=== PATIENT | male | born 1945 | race Caucasian/White ===

== ENCOUNTER 2017-09-17 15:02 | Inpatient (IN) | payer MEDICARE, OTHER ==
[2017-09-17 16:02] LABS: ADD MAN DIFF? NO
[2017-09-17 16:04] LABS: BASOPHILS % 0.4 % (0.0-2.0); EOSINOPHILS # 0.2 10^3/ul (0.0-0.5); EOSINOPHILS % 1.7 % (0.0-7.0); HEMATOCRIT 35.7 % (42.0-52.0); HEMOGLOBIN 12.1 g/dl (14.0-18.0); LYMPHOCYTES # 1.4 10^3/ul (0.8-2.9); LYMPHOCYTES % 14.2 % (15.0-51.0); MEAN CORPUSCULAR HGB CONC 33.9 g/dl (32.0-37.0); MEAN CORPUSCULAR VOLUME 97.3 fl (82.0-101.0); MEAN PLATELET VOLUME 10.6 fl (7.4-10.4); MONOCYTE # 0.9 10^3/ul (0.3-0.9); MONOCYTES % 9.1 % (0.0-11.0); NEUTROPHIL # 7.3 10^3/ul (1.6-7.5); NEUTROPHILS % 74.3 % (39.0-77.0); PLATELET COUNT 245 10^3/UL (140-415); RED BLOOD COUNT 3.67 10^6/ul (4.70-6.10); RED CELL DISTRIBUTION WIDTH 12.2 % (11.5-14.5)
[2017-09-17 16:04] LABS: WHITE BLOOD COUNT 9.8 10^3/ul (4.8-10.8)
[2017-09-17 16:09] LABS: INR 1.12; PROTIME 14.6 Sec (11.9-14.9); PT RATIO 1.1
[2017-09-17 16:10] LABS: PARTIAL THROMBOPLASTIN TIME 28.5 Sec (25.0-35.0)
[2017-09-17 16:13] LABS: ALANINE AMINOTRANSFERASE 24 IU/L (13-69); ALBUMIN 3.8 g/dl (3.3-4.9); ALBUMIN/GLOBULIN RATIO 1.08; ALKALINE PHOSPHATASE 52 IU/L (42-121); ANION GAP 17 (8-16); ASPARTATE AMINO TRANSFERASE 29 IU/L (15-46); BILIRUBIN,INDIRECT 0.1 mg/dl (0-1.1); BILIRUBIN,TOTAL 0.1 mg/dl (0.2-1.3); BLOOD UREA NITROGEN 16 mg/dl (7-20); CALCIUM 8.9 mg/dl (8.4-10.2); CARBON DIOXIDE 29 mmol/L (21-31); CHLORIDE 102 mmol/L (97-110); CREATININE 0.77 mg/dl (0.61-1.24); GLUCOSE 115 mg/dl (70-220); POTASSIUM 4.6 mmol/L (3.5-5.1); SODIUM 143 mmol/L (135-144); TOTAL PROTEIN 7.3 g/dl (6.1-8.1)
[2017-09-17 16:20] LABS: ADD UMIC YES; UR ASCORBIC ACID NEGATIVE (NEGATIVE); UR BILIRUBIN (Dip) NEGATIVE (NEGATIVE); UR BLOOD (Dip) 1+ mg/dL (NEGATIVE); UR CLARITY SLIGHTLY CLOUDY (CLEAR); UR COLOR YELLOW (YELLOW); UR GLUCOSE (Dip) NEGATIVE (NEGATIVE); UR KETONES (Dip) NEGATIVE (NEGATIVE); UR LEUKOCYTE ESTERASE (Dip) NEGATIVE Leu/ul (NEGATIVE); UR MUCUS MODERATE /HPF (NONE SEEN); UR NITRITE (Dip) NEGATIVE (NEGATIVE); UR RBC 2 /HPF (0-5); UR SPECIFIC GRAVITY (Dip) 1.014 (1.003-1.030); UR TOTAL PROTEIN (Dip) NEGATIVE (NEGATIVE); UR UROBILINOGEN (Dip) NEGATIVE (NEGATIVE); UR WBC 1 /HPF (0-5)
[2017-09-17 16:25] LABS: B-TYPE NATRIURETIC PEPTIDE 203 PG/ML (0-125)
[2017-09-17 16:34] LABS: TROPONIN-I < 0.012 ng/ml (0.00-0.12)
[2017-09-17 16:55] LABS: PHENYTOIN (DILANTIN) 5.2 ug/ml (10.0-20.0)
[2017-09-17] MEDS ORDERED: ACETAMINOPHEN 325 MG TAB PO (19:00)
[2017-09-17] MEDS ORDERED: ONDANSETRON 4 MG INJ IV (19:00)
[2017-09-17] MEDS: ENOXAPARIN 100 MG/ML SYG SC (19:05)
[2017-09-17] MEDS: PHENYTOIN 100 MG CAP PO (19:05)
[2017-09-17] MEDS: morphine (ER) 30 MG TAB PO (23:25)
[2017-09-17] MEDS: ATORVASTATIN 10 MG TAB PO (23:51)
[2017-09-17] MEDS: DIAZEPAM 5 MG TAB PO (23:52)
[2017-09-17] MEDS: TAMSULOSIN (SR) 0.4 MG CAP PO (23:52)
[2017-09-18 05:36] LABS: ADD MAN DIFF? NO
[2017-09-18 05:40] LABS: BASOPHIL # 0.1 10^3/ul (0.0-0.1); BASOPHILS % 0.7 % (0.0-2.0); EOSINOPHILS # 0.4 10^3/ul (0.0-0.5); EOSINOPHILS % 4.4 % (0.0-7.0); HEMATOCRIT 31.3 % (42.0-52.0); HEMOGLOBIN 10.6 g/dl (14.0-18.0); LYMPHOCYTES # 2.4 10^3/ul (0.8-2.9); LYMPHOCYTES % 30.1 % (15.0-51.0); MEAN CORPUSCULAR HEMOGLOBIN 33.3 pg (29.0-33.0); MEAN CORPUSCULAR HGB CONC 33.9 g/dl (32.0-37.0); MEAN CORPUSCULAR VOLUME 98.4 fl (82.0-101.0); MONOCYTE # 0.8 10^3/ul (0.3-0.9); MONOCYTES % 10.1 % (0.0-11.0); NEUTROPHIL # 4.4 10^3/ul (1.6-7.5); NEUTROPHILS % 54.3 % (39.0-77.0); PLATELET COUNT 251 10^3/UL (140-415); RED BLOOD COUNT 3.18 10^6/ul (4.70-6.10); RED CELL DISTRIBUTION WIDTH 12.2 % (11.5-14.5)
[2017-09-18 06:45] LABS: CK INDEX 1.1; CREATINE KINASE 78 IU/L (23-200)
[2017-09-18 06:55] LABS: CK-MB 0.85 ng/ml (0.0-2.4); TROPONIN-I < 0.012 ng/ml (0.00-0.12)
[2017-09-18] MEDS ORDERED: ATORVASTATIN 10 MG TAB PO (09:00)
[2017-09-18] MEDS: PHENOBARBITAL 32.4 MG TAB PO (09:29)
[2017-09-18] MEDS: morphine (ER) 30 MG TAB PO ×2 (09:29→20:16)
[2017-09-18] MEDS: PHENYTOIN 100 MG CAP PO (09:29)
[2017-09-18] MEDS: ENOXAPARIN 100 MG/ML SYG SC ×2 (09:30→20:18)
[2017-09-18] MEDS: DIAZEPAM 5 MG TAB PO (20:16)
[2017-09-18] MEDS: TAMSULOSIN (SR) 0.4 MG CAP PO (20:17)
[2017-09-18] MEDS: ATORVASTATIN 10 MG TAB PO (20:17)
[2017-09-18] MEDS ORDERED: DIAZEPAM 5 MG TAB PO (21:00)
[2017-09-18] MEDS ORDERED: TAMSULOSIN (SR) 0.4 MG CAP PO (21:00)
[2017-09-18] MEDS: ACETAMINOPHEN 325 MG TAB PO (21:29)
[2017-09-18] MEDS: HYDROCODONE/APAP (5/325) TAB PO (22:54)
[2017-09-19 05:08] LABS: ADD MAN DIFF? NO
[2017-09-19 05:11] LABS: BASOPHILS % 0.4 % (0.0-2.0); EOSINOPHILS # 0.3 10^3/ul (0.0-0.5); EOSINOPHILS % 3.4 % (0.0-7.0); HEMATOCRIT 33.6 % (42.0-52.0); HEMOGLOBIN 10.9 g/dl (14.0-18.0); LYMPHOCYTES # 3.3 10^3/ul (0.8-2.9); LYMPHOCYTES % 35.4 % (15.0-51.0); MEAN CORPUSCULAR HEMOGLOBIN 32.5 pg (29.0-33.0); MEAN CORPUSCULAR HGB CONC 32.4 g/dl (32.0-37.0); MEAN CORPUSCULAR VOLUME 100.3 fl (82.0-101.0); MEAN PLATELET VOLUME 9.4 fl (7.4-10.4); MONOCYTE # 0.8 10^3/ul (0.3-0.9); MONOCYTES % 8.7 % (0.0-11.0); NEUTROPHIL # 4.8 10^3/ul (1.6-7.5); NEUTROPHILS % 51.6 % (39.0-77.0); PLATELET COUNT 305 10^3/UL (140-415); RED BLOOD COUNT 3.35 10^6/ul (4.70-6.10); RED CELL DISTRIBUTION WIDTH 12.2 % (11.5-14.5)
[2017-09-19 05:11] LABS: WHITE BLOOD COUNT 9.2 10^3/ul (4.8-10.8)
[2017-09-19 05:41] LABS: ANION GAP 12 (8-16); BLOOD UREA NITROGEN 18 mg/dl (7-20); CALCIUM 8.5 mg/dl (8.4-10.2); CARBON DIOXIDE 29 mmol/L (21-31); CHLORIDE 103 mmol/L (97-110); CREATININE 0.86 mg/dl (0.61-1.24); GLUCOSE 100 mg/dl (70-220); POTASSIUM 4.4 mmol/L (3.5-5.1); SODIUM 140 mmol/L (135-144)
[2017-09-19 06:11] LABS: PHENOBARBITAL 8.3 mg/L (15.0-40.0)
[2017-09-19] MEDS: ENOXAPARIN 100 MG/ML SYG SC ×2 (09:13→20:28)
[2017-09-19] MEDS: morphine (ER) 30 MG TAB PO ×2 (09:14→20:26)
[2017-09-19] MEDS: PHENYTOIN 100 MG CAP PO (09:14)
[2017-09-19] MEDS: PHENOBARBITAL 32.4 MG TAB PO (09:20)
[2017-09-19] MEDS: TAMSULOSIN (SR) 0.4 MG CAP PO (20:25)
[2017-09-19] MEDS: ATORVASTATIN 10 MG TAB PO (20:25)
[2017-09-19] MEDS: DIAZEPAM 5 MG TAB PO (20:26)
[2017-09-20] MEDS: ACETAMINOPHEN 325 MG TAB PO (01:16)
[2017-09-20 04:58] LABS: ADD MAN DIFF? NO
[2017-09-20 05:01] LABS: BASOPHILS % 0.4 % (0.0-2.0); EOSINOPHILS # 0.4 10^3/ul (0.0-0.5); EOSINOPHILS % 4.2 % (0.0-7.0); HEMATOCRIT 34.6 % (42.0-52.0); HEMOGLOBIN 11.3 g/dl (14.0-18.0); LYMPHOCYTES # 2.8 10^3/ul (0.8-2.9); LYMPHOCYTES % 29.4 % (15.0-51.0); MEAN CORPUSCULAR HEMOGLOBIN 32.3 pg (29.0-33.0); MEAN CORPUSCULAR HGB CONC 32.7 g/dl (32.0-37.0); MEAN CORPUSCULAR VOLUME 98.9 fl (82.0-101.0); MONOCYTE # 0.8 10^3/ul (0.3-0.9); MONOCYTES % 8.9 % (0.0-11.0); NEUTROPHIL # 5.3 10^3/ul (1.6-7.5); NEUTROPHILS % 56.6 % (39.0-77.0); PLATELET COUNT 343 10^3/UL (140-415); RED CELL DISTRIBUTION WIDTH 11.9 % (11.5-14.5)
[2017-09-20 05:01] LABS: WHITE BLOOD COUNT 9.4 10^3/ul (4.8-10.8)
[2017-09-20 05:23] LABS: ANION GAP 12 (8-16); BLOOD UREA NITROGEN 18 mg/dl (7-20); CALCIUM 8.7 mg/dl (8.4-10.2); CARBON DIOXIDE 30 mmol/L (21-31); CHLORIDE 100 mmol/L (97-110); CREATININE 0.84 mg/dl (0.61-1.24); GLUCOSE 103 mg/dl (70-220); POTASSIUM 4.5 mmol/L (3.5-5.1); SODIUM 137 mmol/L (135-144)
[2017-09-20] MEDS: PHENOBARBITAL 32.4 MG TAB PO (09:03)
[2017-09-20] MEDS: PHENYTOIN 100 MG CAP PO (09:03)
[2017-09-20] MEDS: morphine (ER) 30 MG TAB PO ×2 (09:04→21:03)
[2017-09-20] MEDS: ENOXAPARIN 100 MG/ML SYG SC ×2 (09:04→21:02)
[2017-09-20] MEDS: ATORVASTATIN 10 MG TAB PO (21:03)
[2017-09-20] MEDS: TAMSULOSIN (SR) 0.4 MG CAP PO (21:03)
[2017-09-20] MEDS: DIAZEPAM 5 MG TAB PO (21:03)
[2017-09-21] MEDS: ACETAMINOPHEN 325 MG TAB PO (02:20)
[2017-09-21 05:48] LABS: ADD MAN DIFF? NO
[2017-09-21 05:52] LABS: BASOPHIL # 0.1 10^3/ul (0.0-0.1); BASOPHILS % 0.5 % (0.0-2.0); EOSINOPHILS # 0.3 10^3/ul (0.0-0.5); EOSINOPHILS % 3.4 % (0.0-7.0); HEMATOCRIT 35.9 % (42.0-52.0); HEMOGLOBIN 11.8 g/dl (14.0-18.0); LYMPHOCYTES # 2.1 10^3/ul (0.8-2.9); MEAN CORPUSCULAR HEMOGLOBIN 32.3 pg (29.0-33.0); MEAN CORPUSCULAR HGB CONC 32.9 g/dl (32.0-37.0); MEAN CORPUSCULAR VOLUME 98.4 fl (82.0-101.0); MEAN PLATELET VOLUME 9.3 fl (7.4-10.4); MONOCYTE # 0.7 10^3/ul (0.3-0.9); MONOCYTES % 7.4 % (0.0-11.0); NEUTROPHIL # 6.2 10^3/ul (1.6-7.5); NEUTROPHILS % 66.3 % (39.0-77.0); PLATELET COUNT 409 10^3/UL (140-415); RED BLOOD COUNT 3.65 10^6/ul (4.70-6.10); RED CELL DISTRIBUTION WIDTH 11.8 % (11.5-14.5)
[2017-09-21 05:52] LABS: WHITE BLOOD COUNT 9.4 10^3/ul (4.8-10.8)
[2017-09-21 06:15] LABS: ANION GAP 9 (8-16); BLOOD UREA NITROGEN 17 mg/dl (7-20); CALCIUM 8.7 mg/dl (8.4-10.2); CARBON DIOXIDE 33 mmol/L (21-31); CHLORIDE 100 mmol/L (97-110); GLUCOSE 107 mg/dl (70-220); POTASSIUM 4.7 mmol/L (3.5-5.1); SODIUM 137 mmol/L (135-144)
[2017-09-21] MEDS: PHENYTOIN 100 MG CAP PO (08:46)
[2017-09-21] MEDS: morphine (ER) 30 MG TAB PO ×2 (08:47→21:21)
[2017-09-21] MEDS: PHENOBARBITAL 32.4 MG TAB PO (08:47)
[2017-09-21] MEDS: ENOXAPARIN 100 MG/ML SYG SC ×2 (08:56→21:22)
[2017-09-21] MEDS: DIAZEPAM 5 MG TAB PO (21:21)
[2017-09-21] MEDS: TAMSULOSIN (SR) 0.4 MG CAP PO (21:21)
[2017-09-21] MEDS: ATORVASTATIN 10 MG TAB PO (21:21)
[2017-09-22 05:34] LABS: ADD MAN DIFF? NO
[2017-09-22 05:41] LABS: WHITE BLOOD COUNT 10.4 10^3/ul (4.8-10.8)
[2017-09-22 05:41] LABS: BASOPHIL # 0.1 10^3/ul (0.0-0.1); BASOPHILS % 0.5 % (0.0-2.0); EOSINOPHILS # 0.3 10^3/ul (0.0-0.5); EOSINOPHILS % 3.2 % (0.0-7.0); HEMATOCRIT 35.5 % (42.0-52.0); HEMOGLOBIN 11.7 g/dl (14.0-18.0); LYMPHOCYTES # 2.6 10^3/ul (0.8-2.9); LYMPHOCYTES % 24.6 % (15.0-51.0); MEAN CORPUSCULAR HEMOGLOBIN 32.4 pg (29.0-33.0); MEAN CORPUSCULAR VOLUME 98.3 fl (82.0-101.0); MEAN PLATELET VOLUME 9.3 fl (7.4-10.4); MONOCYTE # 0.9 10^3/ul (0.3-0.9); MONOCYTES % 8.8 % (0.0-11.0); NEUTROPHIL # 6.5 10^3/ul (1.6-7.5); NEUTROPHILS % 62.4 % (39.0-77.0); PLATELET COUNT 404 10^3/UL (140-415); RED BLOOD COUNT 3.61 10^6/ul (4.70-6.10)
[2017-09-22 06:14] LABS: ANION GAP 13 (8-16); BLOOD UREA NITROGEN 19 mg/dl (7-20); CALCIUM 8.6 mg/dl (8.4-10.2); CARBON DIOXIDE 28 mmol/L (21-31); CHLORIDE 102 mmol/L (97-110); CREATININE 0.73 mg/dl (0.61-1.24); GLUCOSE 97 mg/dl (70-220); POTASSIUM 4.7 mmol/L (3.5-5.1); SODIUM 138 mmol/L (135-144)
[2017-09-22] MEDS: PHENYTOIN 100 MG CAP PO (08:58)
[2017-09-22] MEDS: PHENOBARBITAL 32.4 MG TAB PO (08:58)
[2017-09-22] MEDS: morphine (ER) 30 MG TAB PO ×2 (08:59→20:05)
[2017-09-22] MEDS: ENOXAPARIN 100 MG/ML SYG SC ×2 (09:14→20:14)
[2017-09-22] MEDS: TAMSULOSIN (SR) 0.4 MG CAP PO (20:05)
[2017-09-22] MEDS: ATORVASTATIN 10 MG TAB PO (20:05)
[2017-09-22] MEDS: DIAZEPAM 5 MG TAB PO (20:05)
[2017-09-23 05:32] LABS: ADD MAN DIFF? NO
[2017-09-23 05:35] LABS: BASOPHILS % 0.5 % (0.0-2.0); EOSINOPHILS # 0.4 10^3/ul (0.0-0.5); EOSINOPHILS % 4.4 % (0.0-7.0); HEMATOCRIT 33.8 % (42.0-52.0); HEMOGLOBIN 11.1 g/dl (14.0-18.0); LYMPHOCYTES # 2.4 10^3/ul (0.8-2.9); LYMPHOCYTES % 29.8 % (15.0-51.0); MEAN CORPUSCULAR HEMOGLOBIN 32.6 pg (29.0-33.0); MEAN CORPUSCULAR HGB CONC 32.8 g/dl (32.0-37.0); MEAN CORPUSCULAR VOLUME 99.4 fl (82.0-101.0); MEAN PLATELET VOLUME 9.2 fl (7.4-10.4); MONOCYTE # 0.8 10^3/ul (0.3-0.9); MONOCYTES % 9.5 % (0.0-11.0); NEUTROPHIL # 4.4 10^3/ul (1.6-7.5); NEUTROPHILS % 55.2 % (39.0-77.0); PLATELET COUNT 384 10^3/UL (140-415); RED CELL DISTRIBUTION WIDTH 12.1 % (11.5-14.5)
[2017-09-23 05:35] LABS: WHITE BLOOD COUNT 7.9 10^3/ul (4.8-10.8)
[2017-09-23 06:57] LABS: ANION GAP 11 (8-16); BLOOD UREA NITROGEN 19 mg/dl (7-20); CALCIUM 8.3 mg/dl (8.4-10.2); CARBON DIOXIDE 30 mmol/L (21-31); CHLORIDE 101 mmol/L (97-110); CREATININE 0.71 mg/dl (0.61-1.24); GLUCOSE 91 mg/dl (70-220); POTASSIUM 4.4 mmol/L (3.5-5.1); SODIUM 138 mmol/L (135-144)
[2017-09-23] MEDS: PHENYTOIN 100 MG CAP PO (09:05)
[2017-09-23] MEDS: PHENOBARBITAL 32.4 MG TAB PO (09:06)
[2017-09-23] MEDS: morphine (ER) 30 MG TAB PO ×2 (09:06→21:13)
[2017-09-23] MEDS: ENOXAPARIN 100 MG/ML SYG SC ×2 (09:09→21:14)
[2017-09-23] MEDS: SENNA/DOCUSATE NA (8.6MG/50MG) TAB PO (14:47)
[2017-09-23] MEDS: MAGNESIUM CITRATE 300 ML BTL PO (17:39)
[2017-09-23] MEDS: DIAZEPAM 5 MG TAB PO (21:12)
[2017-09-23] MEDS: ATORVASTATIN 10 MG TAB PO (21:12)
[2017-09-23] MEDS: TAMSULOSIN (SR) 0.4 MG CAP PO (21:12)
[2017-09-24] MEDS: PHENOBARBITAL 32.4 MG TAB PO (09:02)
[2017-09-24] MEDS: PHENYTOIN 100 MG CAP PO (09:03)
[2017-09-24] MEDS: morphine (ER) 30 MG TAB PO ×2 (09:03→21:01)
[2017-09-24] MEDS: ENOXAPARIN 100 MG/ML SYG SC ×2 (09:04→21:03)
[2017-09-24] MEDS: ATORVASTATIN 10 MG TAB PO (21:00)
[2017-09-24] MEDS: TAMSULOSIN (SR) 0.4 MG CAP PO (21:01)
[2017-09-24] MEDS: DIAZEPAM 5 MG TAB PO (21:01)
[2017-09-25] MEDS: PHENYTOIN 100 MG CAP PO (09:21)
[2017-09-25] MEDS: morphine (ER) 30 MG TAB PO ×2 (09:21→20:08)
[2017-09-25] MEDS: PHENOBARBITAL 32.4 MG TAB PO (09:21)
[2017-09-25] MEDS: ENOXAPARIN 100 MG/ML SYG SC ×2 (09:22→20:16)
[2017-09-25] MEDS: ATORVASTATIN 10 MG TAB PO (20:07)
[2017-09-25] MEDS: TAMSULOSIN (SR) 0.4 MG CAP PO (20:08)
[2017-09-25] MEDS: DIAZEPAM 5 MG TAB PO (20:08)
[2017-09-26 05:13] LABS: WHITE BLOOD COUNT 8.3 10^3/ul (4.8-10.8)
[2017-09-26 05:13] LABS: ADD MAN DIFF? NO; BASOPHIL # 0.1 10^3/ul (0.0-0.1); BASOPHILS % 0.6 % (0.0-2.0); EOSINOPHILS # 0.3 10^3/ul (0.0-0.5); EOSINOPHILS % 3.9 % (0.0-7.0); HEMATOCRIT 36.3 % (42.0-52.0); HEMOGLOBIN 11.8 g/dl (14.0-18.0); LYMPHOCYTES # 2.5 10^3/ul (0.8-2.9); LYMPHOCYTES % 30.5 % (15.0-51.0); MEAN CORPUSCULAR HEMOGLOBIN 32.2 pg (29.0-33.0); MEAN CORPUSCULAR HGB CONC 32.5 g/dl (32.0-37.0); MEAN CORPUSCULAR VOLUME 99.2 fl (82.0-101.0); MEAN PLATELET VOLUME 9.1 fl (7.4-10.4); MONOCYTE # 0.7 10^3/ul (0.3-0.9); MONOCYTES % 8.8 % (0.0-11.0); NEUTROPHIL # 4.6 10^3/ul (1.6-7.5); NEUTROPHILS % 55.7 % (39.0-77.0); PLATELET COUNT 384 10^3/UL (140-415); RED BLOOD COUNT 3.66 10^6/ul (4.70-6.10); RED CELL DISTRIBUTION WIDTH 12.1 % (11.5-14.5)
[2017-09-26 05:38] LABS: ANION GAP 9 (8-16); BLOOD UREA NITROGEN 16 mg/dl (7-20); CALCIUM 8.5 mg/dl (8.4-10.2); CARBON DIOXIDE 31 mmol/L (21-31); CHLORIDE 103 mmol/L (97-110); CREATININE 0.72 mg/dl (0.61-1.24); GLUCOSE 89 mg/dl (70-220); POTASSIUM 4.2 mmol/L (3.5-5.1); SODIUM 139 mmol/L (135-144)
[2017-09-26] MEDS: PHENOBARBITAL 32.4 MG TAB PO (08:35)
[2017-09-26] MEDS: PHENYTOIN 100 MG CAP PO (08:35)
[2017-09-26] MEDS: morphine (ER) 30 MG TAB PO ×2 (08:37→21:13)
[2017-09-26] MEDS: ENOXAPARIN 100 MG/ML SYG SC ×2 (08:40→21:14)
[2017-09-26] MEDS: ATORVASTATIN 10 MG TAB PO (21:13)
[2017-09-26] MEDS: DIAZEPAM 5 MG TAB PO (21:13)
[2017-09-26] MEDS: TAMSULOSIN (SR) 0.4 MG CAP PO (21:13)
[2017-09-27 05:20] LABS: ADD MAN DIFF? NO
[2017-09-27 05:26] LABS: WHITE BLOOD COUNT 8.8 10^3/ul (4.8-10.8)
[2017-09-27 05:26] LABS: BASOPHILS % 0.5 % (0.0-2.0); EOSINOPHILS # 0.4 10^3/ul (0.0-0.5); EOSINOPHILS % 4.1 % (0.0-7.0); HEMATOCRIT 38.1 % (42.0-52.0); HEMOGLOBIN 12.1 g/dl (14.0-18.0); LYMPHOCYTES # 2.6 10^3/ul (0.8-2.9); LYMPHOCYTES % 29.5 % (15.0-51.0); MEAN CORPUSCULAR HEMOGLOBIN 31.6 pg (29.0-33.0); MEAN CORPUSCULAR HGB CONC 31.8 g/dl (32.0-37.0); MEAN CORPUSCULAR VOLUME 99.5 fl (82.0-101.0); MEAN PLATELET VOLUME 9.3 fl (7.4-10.4); MONOCYTE # 0.8 10^3/ul (0.3-0.9); MONOCYTES % 8.8 % (0.0-11.0); NEUTROPHILS % 56.8 % (39.0-77.0); PLATELET COUNT 385 10^3/UL (140-415); RED BLOOD COUNT 3.83 10^6/ul (4.70-6.10); RED CELL DISTRIBUTION WIDTH 12.1 % (11.5-14.5)
[2017-09-27 05:45] LABS: ANION GAP 12 (8-16); BLOOD UREA NITROGEN 16 mg/dl (7-20); CALCIUM 8.7 mg/dl (8.4-10.2); CARBON DIOXIDE 30 mmol/L (21-31); CHLORIDE 101 mmol/L (97-110); CREATININE 0.71 mg/dl (0.61-1.24); GLUCOSE 88 mg/dl (70-220); POTASSIUM 4.4 mmol/L (3.5-5.1); SODIUM 139 mmol/L (135-144)
[2017-09-27] MEDS: PHENYTOIN 100 MG CAP PO (08:45)
[2017-09-27] MEDS: PHENOBARBITAL 32.4 MG TAB PO (08:46)
[2017-09-27] MEDS: morphine (ER) 30 MG TAB PO (08:46)
[2017-09-27] MEDS: ENOXAPARIN 100 MG/ML SYG SC (08:48)
== END 2017-09-27 20:10 | DRG 301 ==
LOC: E/R 15:02 → MS1 18:59
DX: I82.403 Acute embolism and thrombosis of unspecified deep veins of lower extremity, bilateral (principal); D64.9 Anemia, unspecified; R53.1 Weakness; N40.0 Benign prostatic hyperplasia without lower urinary tract symptoms; F17.210 Nicotine dependence, cigarettes, uncomplicated; E78.00 Pure hypercholesterolemia, unspecified; Z86.011 Personal history of benign neoplasm of the brain; Z86.718 Personal history of other venous thrombosis and embolism
CPT/HCPCS: 36415; 71045; 80048; 80053; 80184; 80185; 81001; 82550; 82553; 83880; 84484; 85025; 85610; 85730; 93005; 93970; 96372; 97110; 97163; 97530; 99285-25